=== PATIENT | male | born 1960 | race African-American/Black ===

== ENCOUNTER 2017-08-02 11:01 | Inpatient (IN) | payer OTHER ==
[2017-08-02 11:50] LABS: ADD MAN DIFF? NO
[2017-08-02 11:54] LABS: WHITE BLOOD COUNT 5.7 10^3/ul (4.8-10.8)
[2017-08-02 11:54] LABS: BASOPHILS % 0.2 % (0.0-2.0); EOSINOPHILS % 0.7 % (0.0-7.0); HEMATOCRIT 22.2 % (42.0-52.0); HEMOGLOBIN 7.3 g/dl (14.0-18.0); LYMPHOCYTES # 1.4 10^3/ul (0.8-2.9); LYMPHOCYTES % 24.9 % (15.0-51.0); MEAN CORPUSCULAR HEMOGLOBIN 25.9 pg (29.0-33.0); MEAN CORPUSCULAR HGB CONC 32.9 g/dl (32.0-37.0); MEAN CORPUSCULAR VOLUME 78.7 fl (82.0-101.0); MEAN PLATELET VOLUME 10.9 fl (7.4-10.4); MONOCYTE # 0.5 10^3/ul (0.3-0.9); MONOCYTES % 8.4 % (0.0-11.0); NEUTROPHIL # 3.7 10^3/ul (1.6-7.5); NEUTROPHILS % 65.4 % (39.0-77.0); PLATELET COUNT 146 10^3/UL (140-415); RED BLOOD COUNT 2.82 10^6/ul (4.70-6.10); RED CELL DISTRIBUTION WIDTH 13.7 % (11.5-14.5)
[2017-08-02 12:17] LABS: INR 1.13; PROTIME 14.7 Sec (11.9-14.9); PT RATIO 1.1
[2017-08-02 12:18] LABS: PARTIAL THROMBOPLASTIN TIME 30.3 Sec (25.0-35.0)
[2017-08-02 12:30] LABS: ALANINE AMINOTRANSFERASE 61 IU/L (13-69); ALBUMIN 4.1 g/dl (3.3-4.9); ALKALINE PHOSPHATASE 78 IU/L (42-121); ANION GAP 25 (8-16); ASPARTATE AMINO TRANSFERASE 46 IU/L (15-46); BLOOD UREA NITROGEN 106 mg/dl (7-20); CALCIUM 7.8 mg/dl (8.4-10.2); CARBON DIOXIDE 15 mmol/L (21-31); CHLORIDE 107 mmol/L (97-110); CREATININE 8.98 mg/dl (0.61-1.24); GLUCOSE 182 mg/dl (70-220); LIPASE 301 U/L (23-300); SODIUM 141 mmol/L (135-144); TOTAL PROTEIN 7.5 g/dl (6.1-8.1)
[2017-08-02 12:36] LABS: POTASSIUM 6.3 mmol/L (3.5-5.1)
[2017-08-02 12:43] LABS: TROPONIN-I < 0.012 ng/ml (0.00-0.12)
[2017-08-02] MEDS ORDERED: BISACODYL (EC) 5 MG TAB PO (13:30)
[2017-08-02] MEDS ORDERED: DOCUSATE SODIUM 100 MG CAP PO (13:30)
[2017-08-02] MEDS ORDERED: ACETAMINOPHEN 325 MG TAB PO (13:30)
[2017-08-02] MEDS ORDERED: ONDANSETRON 4 MG INJ IV (13:30)
[2017-08-02] MEDS ORDERED: NACL 0.9% 3 ML SYG IV (13:30)
[2017-08-02] MEDS ORDERED: MAGNESIUM HYDROXIDE 30ML CUP PO (13:30)
[2017-08-02] MEDS: DEXTROSE 50% 50 ML SYRINGE IV ×2 (13:46→15:47)
[2017-08-02] MEDS: NA BICARBONATE 8.4% 50 ML SYG IV (13:46)
[2017-08-02] MEDS: NA POLYST SULFON 15 GM/60 ML BTL PO (13:46)
[2017-08-02] MEDS: INSULIN REGULAR, HUMAN 100 UNIT/1 ML 3ML VIAL IVP (13:47)
[2017-08-02] MEDS: PROMETHAZINE 25 MG TAB PO ×2 (14:00→22:00)
[2017-08-02] MEDS: ALBUTEROL 0.5% (NEB) 2.5 MG/0.5 ML AMP INH (16:28)
[2017-08-02] MEDS: AMLODIPINE 10 MG TAB PO (16:39)
[2017-08-02] MEDS: ATORVASTATIN 10 MG TAB PO (20:39)
[2017-08-02] MEDS: HYDROCODONE/APAP (5/325) TAB PO ×2 (20:40→21:20)
[2017-08-02] MEDS: FAMOTIDINE 20 MG TAB PO (20:43)
[2017-08-02] MEDS: HEPARIN 1000 UNITS/ML 10 ML INJ CATHETER (23:26)
[2017-08-03] MEDS: PROMETHAZINE 25 MG TAB PO ×3 (06:00→22:00)
[2017-08-03 06:59] LABS: ADD MAN DIFF? NO
[2017-08-03 07:03] LABS: BASOPHILS % 0.2 % (0.0-2.0); EOSINOPHILS # 0.1 10^3/ul (0.0-0.5); EOSINOPHILS % 1.9 % (0.0-7.0); HEMATOCRIT 24.4 % (42.0-52.0); HEMOGLOBIN 8.1 g/dl (14.0-18.0); LYMPHOCYTES # 1.5 10^3/ul (0.8-2.9); LYMPHOCYTES % 36.2 % (15.0-51.0); MEAN CORPUSCULAR HEMOGLOBIN 26.2 pg (29.0-33.0); MEAN CORPUSCULAR HGB CONC 33.2 g/dl (32.0-37.0); MEAN PLATELET VOLUME 11.8 fl (7.4-10.4); MONOCYTE # 0.7 10^3/ul (0.3-0.9); MONOCYTES % 16.2 % (0.0-11.0); NEUTROPHIL # 1.9 10^3/ul (1.6-7.5); NEUTROPHILS % 45.3 % (39.0-77.0); PLATELET COUNT 153 10^3/UL (140-415); RED BLOOD COUNT 3.09 10^6/ul (4.70-6.10); RED CELL DISTRIBUTION WIDTH 13.5 % (11.5-14.5)
[2017-08-03 07:03] LABS: WHITE BLOOD COUNT 4.3 10^3/ul (4.8-10.8)
[2017-08-03 07:20] LABS: ANION GAP 19 (8-16); BLOOD UREA NITROGEN 90 mg/dl (7-20); CARBON DIOXIDE 21 mmol/L (21-31); CHLORIDE 107 mmol/L (97-110); CREATININE 7.48 mg/dl (0.61-1.24); GLUCOSE 80 mg/dl (70-220); POTASSIUM 4.8 mmol/L (3.5-5.1); SODIUM 142 mmol/L (135-144)
[2017-08-03 07:22] LABS: IRON 136 ug/dl (35-150)
[2017-08-03 07:32] LABS: % IRON SATURATION 41 % SAT (22-52); TOTAL IRON BINDING CAPACITY 329 ug/dl (241-421)
[2017-08-03 07:57] LABS: URIC ACID 6.8 mg/dl (3.1-7.9)
[2017-08-03 08:00] LABS: FERRITIN 78.2 ng/ml (11.1-264.0)
[2017-08-03] MEDS: LINAGLIPTIN 5 MG TABLET PO (08:31)
[2017-08-03] MEDS: AMLODIPINE 10 MG TAB PO (08:33)
[2017-08-03] MEDS: HEPARIN 1000 UNITS/ML 10 ML INJ CATHETER ×2 (14:46→22:16)
[2017-08-03] MEDS: HYDROCODONE/APAP (5/325) TAB PO (15:30)
[2017-08-03 20:13] LABS: IMMEDIATE SPIN CROSSMATCH 1 2
[2017-08-03] MEDS: FAMOTIDINE 20 MG TAB PO (21:00)
[2017-08-03] MEDS: ATORVASTATIN 10 MG TAB PO (21:00)
[2017-08-04] MEDS: HYDROCODONE/APAP (5/325) TAB PO (00:43)
[2017-08-04] MEDS: ONDANSETRON 4 MG TAB PO (01:29)
[2017-08-04] MEDS: PROMETHAZINE 25 MG TAB PO ×3 (05:33→21:55)
[2017-08-04 05:54] LABS: ADD MAN DIFF? NO
[2017-08-04 05:57] LABS: BASOPHILS % 0.2 % (0.0-2.0); EOSINOPHILS # 0.1 10^3/ul (0.0-0.5); EOSINOPHILS % 1.1 % (0.0-7.0); HEMATOCRIT 28.7 % (42.0-52.0); HEMOGLOBIN 9.7 g/dl (14.0-18.0); LYMPHOCYTES # 1.4 10^3/ul (0.8-2.9); LYMPHOCYTES % 21.8 % (15.0-51.0); MEAN CORPUSCULAR HEMOGLOBIN 26.5 pg (29.0-33.0); MEAN CORPUSCULAR HGB CONC 33.8 g/dl (32.0-37.0); MEAN CORPUSCULAR VOLUME 78.4 fl (82.0-101.0); MEAN PLATELET VOLUME 11.2 fl (7.4-10.4); MONOCYTE # 0.7 10^3/ul (0.3-0.9); MONOCYTES % 11.2 % (0.0-11.0); NEUTROPHIL # 4.1 10^3/ul (1.6-7.5); NEUTROPHILS % 65.4 % (39.0-77.0); PLATELET COUNT 151 10^3/UL (140-415); RED BLOOD COUNT 3.66 10^6/ul (4.70-6.10); RED CELL DISTRIBUTION WIDTH 13.6 % (11.5-14.5)
[2017-08-04 05:57] LABS: WHITE BLOOD COUNT 6.3 10^3/ul (4.8-10.8)
[2017-08-04 06:32] LABS: ANION GAP 19 (8-16); BLOOD UREA NITROGEN 52 mg/dl (7-20); CALCIUM 8.1 mg/dl (8.4-10.2); CARBON DIOXIDE 27 mmol/L (21-31); CHLORIDE 102 mmol/L (97-110); CREATININE 5.17 mg/dl (0.61-1.24); GLUCOSE 104 mg/dl (70-220); POTASSIUM 4.7 mmol/L (3.5-5.1); SODIUM 143 mmol/L (135-144)
[2017-08-04 06:56] LABS: PHOSPHORUS 4.7 mg/dl (2.5-4.9)
[2017-08-04] MEDS: AMLODIPINE 10 MG TAB PO (08:08)
[2017-08-04] MEDS: LINAGLIPTIN 5 MG TABLET PO (08:09)
[2017-08-04] MEDS: ATORVASTATIN 10 MG TAB PO (21:55)
[2017-08-04] MEDS: FAMOTIDINE 20 MG TAB PO (21:55)
[2017-08-05] MEDS: PROMETHAZINE 25 MG TAB PO ×3 (06:00→22:00)
[2017-08-05 07:45] LABS: ADD MAN DIFF? NO; HAAIG REFLEX REFLEX FILED
[2017-08-05 07:54] LABS: BASOPHILS % 0.3 % (0.0-2.0); EOSINOPHILS # 0.1 10^3/ul (0.0-0.5); EOSINOPHILS % 1.5 % (0.0-7.0); HEMATOCRIT 28.1 % (42.0-52.0); HEMOGLOBIN 9.4 g/dl (14.0-18.0); LYMPHOCYTES # 1.9 10^3/ul (0.8-2.9); LYMPHOCYTES % 32.5 % (15.0-51.0); MEAN CORPUSCULAR HEMOGLOBIN 26.6 pg (29.0-33.0); MEAN CORPUSCULAR HGB CONC 33.5 g/dl (32.0-37.0); MEAN CORPUSCULAR VOLUME 79.6 fl (82.0-101.0); MEAN PLATELET VOLUME 11.2 fl (7.4-10.4); NEUTROPHIL # 2.8 10^3/ul (1.6-7.5); PLATELET COUNT 152 10^3/UL (140-415); RED BLOOD COUNT 3.53 10^6/ul (4.70-6.10); RED CELL DISTRIBUTION WIDTH 13.7 % (11.5-14.5)
[2017-08-05 07:54] LABS: WHITE BLOOD COUNT 5.9 10^3/ul (4.8-10.8)
[2017-08-05 08:05] LABS: MONOCYTES % 17.4 % (0.0-11.0)
[2017-08-05 08:14] LABS: ALANINE AMINOTRANSFERASE 41 IU/L (13-69); ALBUMIN 3.5 g/dl (3.3-4.9); ALBUMIN/GLOBULIN RATIO 1.06; ALKALINE PHOSPHATASE 68 IU/L (42-121); ANION GAP 17 (8-16); ASPARTATE AMINO TRANSFERASE 22 IU/L (15-46); BILIRUBIN,INDIRECT 0.1 mg/dl (0-1.1); BILIRUBIN,TOTAL 0.1 mg/dl (0.2-1.3); BLOOD UREA NITROGEN 66 mg/dl (7-20); CALCIUM 7.9 mg/dl (8.4-10.2); CARBON DIOXIDE 25 mmol/L (21-31); CHLORIDE 103 mmol/L (97-110); CREATININE 6.49 mg/dl (0.61-1.24); GLUCOSE 83 mg/dl (70-220); POTASSIUM 5.1 mmol/L (3.5-5.1); SODIUM 140 mmol/L (135-144); TOTAL PROTEIN 6.8 g/dl (6.1-8.1)
[2017-08-05 08:38] LABS: INR 1.04; PROTIME 13.7 Sec (11.9-14.9); PT RATIO 1.1
[2017-08-05 08:39] LABS: PARTIAL THROMBOPLASTIN TIME 29.2 Sec (25.0-35.0)
[2017-08-05 08:42] LABS: HEPATITIS B SURFACE ANTIGEN NEGATIVE (NEGATIVE)
[2017-08-05 09:00] LABS: HEPATITIS B CORE ANTIBODY NEGATIVE (NEGATIVE); HEPATITIS C VIRAL ANTIBODY NEGATIVE (NEGATIVE)
[2017-08-05 09:27] LABS: PHOSPHORUS 5.9 mg/dl (2.5-4.9)
[2017-08-05 09:27] LABS: MAGNESIUM 1.9 mg/dl (1.7-2.5)
[2017-08-05] MEDS: AMLODIPINE 10 MG TAB PO (09:38)
[2017-08-05] MEDS: LINAGLIPTIN 5 MG TABLET PO (09:38)
[2017-08-05] MEDS: INSULIN ASPART [NOVOLOG] 3 ML PEN SC ×2 (12:30→18:44)
[2017-08-05] MEDS: INFLUENZA VIRUS VACCINE 0.5 ML (DISPENSING) IM* (12:40)
[2017-08-05] MEDS: HEPARIN 1000 UNITS/ML 10 ML INJ CATHETER ×2 (14:48→22:49)
[2017-08-05] MEDS ORDERED: LIDOCAINE 1% (MDV) 20 ML INJ (16:25)
[2017-08-05] MEDS ORDERED: HEPARIN 1000 UNITS/ML 10 ML INJ (16:25)
[2017-08-05] MEDS ORDERED: MIDAZOLAM 1 MG/ML 2 ML INJ (16:25)
[2017-08-05] MEDS ORDERED: HEPARIN 1000 UNITS/NS (A-LINE) 1,000 ML (16:25)
[2017-08-05] MEDS ORDERED: FENTAnyl 50 MCG/ML VIAL (16:25)
[2017-08-05] MEDS: EPOETIN 10000 UNITS/1 ML INJ (ESRD) SC (18:10)
[2017-08-05] MEDS ORDERED: GLUCAGON 1 MG INJ IM (18:30)
[2017-08-05] MEDS ORDERED: GLUCOSE GEL 15 GRAM TUBE BUCCAL (18:30)
[2017-08-05] MEDS ORDERED: GLUCOSE GEL 15 GRAM TUBE PO ×2 (18:30)
[2017-08-05] MEDS ORDERED: DEXTROSE 50% 50 ML SYRINGE IV ×2 (18:30)
[2017-08-05] MEDS: HYDROCODONE/APAP (5/325) TAB PO ×2 (18:45→22:56)
[2017-08-05] MEDS: FAMOTIDINE 20 MG TAB PO (21:00)
[2017-08-05] MEDS: ATORVASTATIN 10 MG TAB PO (21:00)
[2017-08-06] MEDS: ACCU-CHEK XX (02:00)
[2017-08-06] MEDS: PROMETHAZINE 25 MG TAB PO ×3 (06:18→22:08)
[2017-08-06] MEDS: HYDROCODONE/APAP (5/325) TAB PO (06:18)
[2017-08-06] MEDS: INSULIN ASPART [NOVOLOG] 3 ML PEN SC ×3 (07:25→17:39)
[2017-08-06 07:30] LABS: ADD MAN DIFF? NO
[2017-08-06 08:15] LABS: BASOPHILS % 0.3 % (0.0-2.0); EOSINOPHILS # 0.1 10^3/ul (0.0-0.5); EOSINOPHILS % 1.8 % (0.0-7.0); HEMATOCRIT 27.3 % (42.0-52.0); LYMPHOCYTES # 1.1 10^3/ul (0.8-2.9); LYMPHOCYTES % 17.8 % (15.0-51.0); MEAN CORPUSCULAR HEMOGLOBIN 26.5 pg (29.0-33.0); MEAN CORPUSCULAR VOLUME 80.5 fl (82.0-101.0); MEAN PLATELET VOLUME 11.2 fl (7.4-10.4); MONOCYTES % 15.8 % (0.0-11.0); NEUTROPHIL # 3.9 10^3/ul (1.6-7.5); PLATELET COUNT 142 10^3/UL (140-415); RED BLOOD COUNT 3.39 10^6/ul (4.70-6.10); RED CELL DISTRIBUTION WIDTH 13.8 % (11.5-14.5)
[2017-08-06 08:15] LABS: WHITE BLOOD COUNT 6.1 10^3/ul (4.8-10.8)
[2017-08-06 08:21] LABS: ANION GAP 17 (8-16); BLOOD UREA NITROGEN 37 mg/dl (7-20); CALCIUM 8.2 mg/dl (8.4-10.2); CARBON DIOXIDE 30 mmol/L (21-31); CHLORIDE 101 mmol/L (97-110); GLUCOSE 130 mg/dl (70-220); POTASSIUM 4.8 mmol/L (3.5-5.1); SODIUM 143 mmol/L (135-144)
[2017-08-06] MEDS: AMLODIPINE 10 MG TAB PO (08:45)
[2017-08-06] MEDS: LINAGLIPTIN 5 MG TABLET PO (08:46)
[2017-08-06] MEDS ORDERED: HEPARIN 1000 UNITS/ML 10 ML INJ CATHETER (09:00)
[2017-08-06] MEDS: ACETAMINOPHEN 325 MG TAB PO (11:36)
[2017-08-06] MEDS: HEPARIN 5,000 UNIT/0.5 ML VIAL SC ×2 (14:27→22:33)
[2017-08-06 17:23] LABS: PTH CALCIUM 8.2 mg/dL (8.6-10.3)
[2017-08-06] MEDS: ATORVASTATIN 10 MG TAB PO (20:09)
[2017-08-06] MEDS: FAMOTIDINE 20 MG TAB PO (20:09)
[2017-08-07] MEDS: ACCU-CHEK XX (02:46)
[2017-08-07] MEDS: PROMETHAZINE 25 MG TAB PO ×3 (06:30→22:23)
[2017-08-07] MEDS: HEPARIN 5,000 UNIT/0.5 ML VIAL SC ×3 (06:59→22:44)
[2017-08-07] MEDS: INSULIN ASPART [NOVOLOG] 3 ML PEN SC ×3 (07:25→16:34)
[2017-08-07] MEDS: AMLODIPINE 10 MG TAB PO (08:00)
[2017-08-07] MEDS: LINAGLIPTIN 5 MG TABLET PO (08:01)
[2017-08-07 08:21] LABS: PTH INTACT 295 pg/mL (14-64)
[2017-08-07 08:51] LABS: ADD MAN DIFF? NO
[2017-08-07 08:58] LABS: WHITE BLOOD COUNT 6.4 10^3/ul (4.8-10.8)
[2017-08-07 08:58] LABS: BASOPHILS % 0.3 % (0.0-2.0); EOSINOPHILS # 0.1 10^3/ul (0.0-0.5); HEMOGLOBIN 9.2 g/dl (14.0-18.0); LYMPHOCYTES # 1.8 10^3/ul (0.8-2.9); LYMPHOCYTES % 28.4 % (15.0-51.0); MEAN CORPUSCULAR HEMOGLOBIN 26.4 pg (29.0-33.0); MEAN CORPUSCULAR HGB CONC 32.9 g/dl (32.0-37.0); MEAN CORPUSCULAR VOLUME 80.2 fl (82.0-101.0); MEAN PLATELET VOLUME 11.5 fl (7.4-10.4); MONOCYTE # 1.1 10^3/ul (0.3-0.9); MONOCYTES % 16.5 % (0.0-11.0); NEUTROPHIL # 3.4 10^3/ul (1.6-7.5); NEUTROPHILS % 52.5 % (39.0-77.0); PLATELET COUNT 141 10^3/UL (140-415); RED BLOOD COUNT 3.49 10^6/ul (4.70-6.10); RED CELL DISTRIBUTION WIDTH 13.6 % (11.5-14.5)
[2017-08-07 09:19] LABS: ANION GAP 17 (8-16); BLOOD UREA NITROGEN 53 mg/dl (7-20); CALCIUM 8.2 mg/dl (8.4-10.2); CARBON DIOXIDE 24 mmol/L (21-31); CHLORIDE 102 mmol/L (97-110); CREATININE 5.49 mg/dl (0.61-1.24); GLUCOSE 88 mg/dl (70-220); PHOSPHORUS 5.2 mg/dl (2.5-4.9); POTASSIUM 5.1 mmol/L (3.5-5.1); SODIUM 138 mmol/L (135-144)
[2017-08-07] MEDS: EPOETIN 10000 UNITS/1 ML INJ (ESRD) SC (16:30)
[2017-08-07] MEDS: HYDROCODONE/APAP (5/325) TAB PO (16:32)
[2017-08-07] MEDS: FAMOTIDINE 20 MG TAB PO (20:01)
[2017-08-07] MEDS: ATORVASTATIN 10 MG TAB PO (20:01)
[2017-08-08] MEDS: ACCU-CHEK XX (02:07)
[2017-08-08] MEDS: PROMETHAZINE 25 MG TAB PO ×2 (06:00→13:20)
[2017-08-08] MEDS: HEPARIN 5,000 UNIT/0.5 ML VIAL SC ×2 (06:00→13:22)
[2017-08-08] MEDS ORDERED: LIDOCAINE 1% (MPF) 30 ML INJ (06:25)
[2017-08-08] MEDS ORDERED: THROMBIN 5000 UNIT VIAL (06:25)
[2017-08-08] MEDS ORDERED: GELATIN SIZE 100 SPONGE (06:25)
[2017-08-08] MEDS ORDERED: HEPARIN 1000 UNITS/ML 10 ML INJ (06:26)
[2017-08-08 07:04] LABS: ADD MAN DIFF? NO
[2017-08-08 07:05] LABS: BASOPHILS % 0.2 % (0.0-2.0); EOSINOPHILS # 0.1 10^3/ul (0.0-0.5); HEMATOCRIT 29.2 % (42.0-52.0); HEMOGLOBIN 9.4 g/dl (14.0-18.0); LYMPHOCYTES # 1.9 10^3/ul (0.8-2.9); LYMPHOCYTES % 33.1 % (15.0-51.0); MEAN CORPUSCULAR HEMOGLOBIN 26.5 pg (29.0-33.0); MEAN CORPUSCULAR HGB CONC 32.2 g/dl (32.0-37.0); MEAN CORPUSCULAR VOLUME 82.3 fl (82.0-101.0); NEUTROPHIL # 2.6 10^3/ul (1.6-7.5); NEUTROPHILS % 46.1 % (39.0-77.0); PLATELET COUNT 144 10^3/UL (140-415); RED BLOOD COUNT 3.55 10^6/ul (4.70-6.10); RED CELL DISTRIBUTION WIDTH 13.4 % (11.5-14.5)
[2017-08-08 07:05] LABS: WHITE BLOOD COUNT 5.6 10^3/ul (4.8-10.8)
[2017-08-08 07:12] LABS: MONOCYTES % 18.4 % (0.0-11.0)
[2017-08-08] MEDS: LIDOCAINE 1% (MPF) 30 ML INJ INJ (07:15)
[2017-08-08] MEDS: HEPARIN 1000 UNITS/ML 10 ML INJ IRR (07:15)
[2017-08-08 07:23] LABS: ANION GAP 18 (8-16); BLOOD UREA NITROGEN 46 mg/dl (7-20); CALCIUM 8.5 mg/dl (8.4-10.2); CARBON DIOXIDE 30 mmol/L (21-31); CHLORIDE 100 mmol/L (97-110); CREATININE 4.96 mg/dl (0.61-1.24); GLUCOSE 94 mg/dl (70-220); POTASSIUM 4.6 mmol/L (3.5-5.1); SODIUM 143 mmol/L (135-144)
[2017-08-08] MEDS ORDERED: LIDOCAINE 2% (SDV) 5 ML INJ (07:35)
[2017-08-08] MEDS ORDERED: PROPOFOL 20 ML (07:35)
[2017-08-08] MEDS ORDERED: MEPERIDINE 100 MG INJ (07:35)
[2017-08-08] MEDS ORDERED: EPHEDrine SULFATE 50 MG/5 ML SYG IV (09:00)
[2017-08-08] MEDS ORDERED: DIPHENHYDRAMINE 50 MG INJ IV (09:00)
[2017-08-08] MEDS ORDERED: MIDAZOLAM 1 MG/ML 2 ML INJ IV (09:00)
[2017-08-08] MEDS ORDERED: FENTAnyl 50 MCG/ML VIAL IV ×3 (09:00)
[2017-08-08] MEDS ORDERED: METOCLOPRAMIDE 10 MG INJ IV (09:00)
[2017-08-08] MEDS ORDERED: MEPERIDINE 25 MG INJ IV (09:00)
[2017-08-08] MEDS ORDERED: OXYCODONE/ACETAMINOPHEN (5/325) TAB PO ×2 (09:00)
[2017-08-08] MEDS ORDERED: LABETALOL HCL 20MG INJ IV (09:00)
[2017-08-08] MEDS ORDERED: HYDROmorphONE (0.2 MG/ML) 10ML SYG IV ×2 (09:00)
[2017-08-08] MEDS ORDERED: hydrALAzine 20 MG INJ IV (09:00)
[2017-08-08] MEDS ORDERED: NEOSTIGMINE 3 MG/3 ML SYRINGE (09:14)
[2017-08-08] MEDS ORDERED: ONDANSETRON 4 MG INJ (09:14)
[2017-08-08] MEDS ORDERED: ROCURONIUM 50 MG INJ (09:14)
[2017-08-08] MEDS ORDERED: CEFAZOLIN 1 GM INJ (09:14)
[2017-08-08] MEDS: ONDANSETRON 4 MG INJ IV (09:14)
[2017-08-08] MEDS ORDERED: GLYCOPYRROLATE 0.4 MG INJ (09:14)
[2017-08-08] MEDS: HYDROmorphONE (0.2 MG/ML) 10ML SYG IV (09:17)
[2017-08-08] MEDS: LISINOPRIL 10 MG TAB PO (10:09)
[2017-08-08] MEDS: INSULIN ASPART [NOVOLOG] 3 ML PEN SC ×3 (10:09→17:05)
[2017-08-08] MEDS: LINAGLIPTIN 5 MG TABLET PO (10:10)
[2017-08-08] MEDS: AMLODIPINE 10 MG TAB PO (10:11)
[2017-08-08] MEDS: HYDROCODONE/APAP (5/325) TAB PO ×2 (10:26→16:46)
== END 2017-08-08 19:40 | DRG 674 ==
LOC: TEL 13:07 → E/R 11:01
PROC: 03180ZD Bypass Left Brachial Artery to Upper Arm Vein, Open Approach (ICD-10-PCS; principal; 2017-08-02 13:55)
PROC: 06HM33Z Insertion of Infusion Device into Right Femoral Vein, Percutaneous Approach (ICD-10-PCS; 2017-08-02 13:55)
PROC: B54BZZA Ultrasonography of Right Lower Extremity Veins, Guidance (ICD-10-PCS; 2017-08-02 13:55)
PROC: 06PYX3Z Removal of Infusion Device from Lower Vein, External Approach (ICD-10-PCS; 2017-08-02 13:55)
PROC: 06HM33Z Insertion of Infusion Device into Right Femoral Vein, Percutaneous Approach (ICD-10-PCS; 2017-08-02 13:55)
PROC: 02H633Z Insertion of Infusion Device into Right Atrium, Percutaneous Approach (ICD-10-PCS; 2017-08-02 13:55)
PROC: B214YZZ Fluoroscopy of Right Heart using Other Contrast (ICD-10-PCS; 2017-08-02 13:55)
PROC: B543ZZA Ultrasonography of Right Jugular Veins, Guidance (ICD-10-PCS; 2017-08-02 13:55)
PROC: 5A1D70Z Performance of Urinary Filtration, Intermittent, Less than 6 Hours Per Day (ICD-10-PCS; 2017-08-02 13:55)
PROC: 3E0234Z Introduction of Serum, Toxoid and Vaccine into Muscle, Percutaneous Approach (ICD-10-PCS; 2017-08-02 13:55)
PROC: 30233N1 Transfusion of Nonautologous Red Blood Cells into Peripheral Vein, Percutaneous Approach (ICD-10-PCS; 2017-08-02 13:55)
DX: N17.9 Acute kidney failure, unspecified (principal); I12.0 Hypertensive chronic kidney disease with stage 5 chronic kidney disease or end stage renal disease; E87.2 Acidosis; T82.41XA Breakdown (mechanical) of vascular dialysis catheter, initial encounter; E11.22 Type 2 diabetes mellitus with diabetic chronic kidney disease; N18.6 End stage renal disease; D63.1 Anemia in chronic kidney disease; I69.392 Facial weakness following cerebral infarction; E78.5 Hyperlipidemia, unspecified; F20.9 Schizophrenia, unspecified; Z99.2 Dependence on renal dialysis; Z23 Encounter for immunization; G89.29 Other chronic pain; M54.9 Dorsalgia, unspecified; Y83.8 Other surgical procedures as the cause of abnormal reaction of the patient, or of later complication, without mention of misadventure at the time of the procedure; Y92.230 Patient room in hospital as the place of occurrence of the external cause
CPT/HCPCS: 36415; 36430; 71045; 74018; 76775; 80048; 80053; 82728; 82962; 83540; 83690; 83735; 83970; 84100; 84484; 84560; 85025; 85610; 85730; 86704; 86709; 86803; 86850; 86900; 86901; 86920; 87081; 87340; 90686; 90935; 93005; 93970; 94664; 96374; 96375; 96376; 97162; 99291-25

== ENCOUNTER 2017-10-01 09:05 | Emergency (ER) | payer OTHER ==
[2017-10-01 09:58] LABS: ADD MAN DIFF? NO
[2017-10-01 10:03] LABS: WHITE BLOOD COUNT 6.6 10^3/ul (4.8-10.8)
[2017-10-01 10:03] LABS: BASOPHILS % 0.2 % (0.0-2.0); EOSINOPHILS # 0.2 10^3/ul (0.0-0.5); EOSINOPHILS % 2.3 % (0.0-7.0); HEMATOCRIT 37.1 % (42.0-52.0); HEMOGLOBIN 11.5 g/dl (14.0-18.0); LYMPHOCYTES # 1.3 10^3/ul (0.8-2.9); LYMPHOCYTES % 19.7 % (15.0-51.0); MEAN CORPUSCULAR HEMOGLOBIN 26.3 pg (29.0-33.0); MEAN CORPUSCULAR VOLUME 84.7 fl (82.0-101.0); MEAN PLATELET VOLUME 10.5 fl (7.4-10.4); MONOCYTE # 0.5 10^3/ul (0.3-0.9); MONOCYTES % 7.9 % (0.0-11.0); NEUTROPHIL # 4.6 10^3/ul (1.6-7.5); NEUTROPHILS % 69.6 % (39.0-77.0); PLATELET COUNT 186 10^3/UL (140-415); RED BLOOD COUNT 4.38 10^6/ul (4.70-6.10); RED CELL DISTRIBUTION WIDTH 15.7 % (11.5-14.5)
[2017-10-01 10:26] LABS: ANION GAP 16 (8-16); BLOOD UREA NITROGEN 62 mg/dl (7-20); CALCIUM 8.5 mg/dl (8.4-10.2); CARBON DIOXIDE 25 mmol/L (21-31); CHLORIDE 106 mmol/L (97-110); CREATININE 7.18 mg/dl (0.61-1.24); GLUCOSE 222 mg/dl (70-220); SODIUM 141 mmol/L (135-144)
[2017-10-01 10:32] LABS: POTASSIUM 6.2 mmol/L (3.5-5.1)
[2017-10-01 10:33] LABS: INR 0.93; PROTIME 12.5 Sec (11.9-14.9)
[2017-10-01 10:38] LABS: TROPONIN-I < 0.012 ng/ml (0.00-0.12)
[2017-10-01 10:39] LABS: PARTIAL THROMBOPLASTIN TIME 28.1 Sec (25.0-35.0)
== END 2017-10-01 11:14 | disposition home or self-care (01) ==
LOC: E/R 09:05
DX: S20.212A Contusion of left front wall of thorax, initial encounter (principal); I10 Essential (primary) hypertension; R40.2142 Coma scale, eyes open, spontaneous, at arrival to emergency department; R40.2252 Coma scale, best verbal response, oriented, at arrival to emergency department; R40.2362 Coma scale, best motor response, obeys commands, at arrival to emergency department; W19.XXXA Unspecified fall, initial encounter; Y92.9 Unspecified place or not applicable
CPT/HCPCS: 36415; 71045; 71100; 80048; 84484; 85025; 85610; 85730; 93005; 99285-25

== ENCOUNTER 2017-11-21 15:29 | Observation (INO) | payer OTHER ==
[2017-11-21 16:11] LABS: ADD MAN DIFF? NO
[2017-11-21 16:13] LABS: BASOPHILS % 0.2 % (0.0-2.0); EOSINOPHILS # 0.1 10^3/ul (0.0-0.5); EOSINOPHILS % 1.3 % (0.0-7.0); HEMOGLOBIN 11.4 g/dl (14.0-18.0); LYMPHOCYTES # 1.6 10^3/ul (0.8-2.9); LYMPHOCYTES % 18.6 % (15.0-51.0); MEAN CORPUSCULAR HEMOGLOBIN 23.3 pg (29.0-33.0); MEAN CORPUSCULAR HGB CONC 30.8 g/dl (32.0-37.0); MEAN CORPUSCULAR VOLUME 75.7 fl (82.0-101.0); MEAN PLATELET VOLUME 11.1 fl (7.4-10.4); MONOCYTE # 0.6 10^3/ul (0.3-0.9); MONOCYTES % 7.7 % (0.0-11.0); NEUTROPHILS % 71.8 % (39.0-77.0); PLATELET COUNT 170 10^3/UL (140-415); RED BLOOD COUNT 4.89 10^6/ul (4.70-6.10); RED CELL DISTRIBUTION WIDTH 15.6 % (11.5-14.5)
[2017-11-21 16:13] LABS: WHITE BLOOD COUNT 8.3 10^3/ul (4.8-10.8)
[2017-11-21] MEDS: morphine 4 MG/ML VIAL IV (16:18)
[2017-11-21] MEDS: ONDANSETRON 4 MG INJ IV (16:18)
[2017-11-21 16:21] LABS: ALANINE AMINOTRANSFERASE 32 IU/L (13-69); ALBUMIN 4.1 g/dl (3.3-4.9); ALBUMIN/GLOBULIN RATIO 1.36; ALKALINE PHOSPHATASE 111 IU/L (42-121); ANION GAP 21 (8-16); ASPARTATE AMINO TRANSFERASE 25 IU/L (15-46); BILIRUBIN,INDIRECT 0.4 mg/dl (0-1.1); BILIRUBIN,TOTAL 0.4 mg/dl (0.2-1.3); BLOOD UREA NITROGEN 56 mg/dl (7-20); CALCIUM 7.6 mg/dl (8.4-10.2); CARBON DIOXIDE 23 mmol/L (21-31); CHLORIDE 101 mmol/L (97-110); CREATININE 7.74 mg/dl (0.61-1.24); GLUCOSE 229 mg/dl (70-220); LIPASE 191 U/L (23-300); POTASSIUM 5.2 mmol/L (3.5-5.1); SODIUM 140 mmol/L (135-144); TOTAL PROTEIN 7.1 g/dl (6.1-8.1)
[2017-11-21] MEDS: HYDROmorphONE 2 MG/ML SYG IV (17:52)
[2017-11-21] MEDS: HYDROmorphONE 1 MG/ML SYG IV (19:20)
[2017-11-21] MEDS ORDERED: DOCUSATE SODIUM 100 MG CAP PO (19:30)
[2017-11-21] MEDS ORDERED: ACETAMINOPHEN 325 MG TAB PO (19:30)
[2017-11-21] MEDS ORDERED: MAGNESIUM HYDROXIDE 30ML CUP PO (19:30)
[2017-11-21] MEDS ORDERED: ONDANSETRON 4 MG INJ IV (19:30)
[2017-11-21] MEDS: NA POLYST SULFON 15 GM/60 ML BTL PO (20:08)
[2017-11-21] MEDS: AMLODIPINE 10 MG TAB PO (20:09)
[2017-11-21] MEDS: FAMOTIDINE 20 MG TAB PO (20:09)
[2017-11-22] MEDS: ONDANSETRON 4 MG INJ IV ×3 (00:08→15:55)
[2017-11-22] MEDS: morphine 4 MG/ML VIAL IV ×6 (00:09→22:34)
[2017-11-22] MEDS: ACCU-CHEK XX (01:26)
[2017-11-22 06:45] LABS: ADD MAN DIFF? NO
[2017-11-22 06:52] LABS: BASOPHILS % 0.6 % (0.0-2.0); EOSINOPHILS % 0.8 % (0.0-7.0); HEMATOCRIT 32.3 % (42.0-52.0); HEMOGLOBIN 10.1 g/dl (14.0-18.0); LYMPHOCYTES # 1.5 10^3/ul (0.8-2.9); LYMPHOCYTES % 28.7 % (15.0-51.0); MEAN CORPUSCULAR HEMOGLOBIN 23.5 pg (29.0-33.0); MEAN CORPUSCULAR HGB CONC 31.3 g/dl (32.0-37.0); MEAN CORPUSCULAR VOLUME 75.3 fl (82.0-101.0); MEAN PLATELET VOLUME 11.1 fl (7.4-10.4); MONOCYTE # 0.5 10^3/ul (0.3-0.9); MONOCYTES % 9.6 % (0.0-11.0); NEUTROPHIL # 3.2 10^3/ul (1.6-7.5); NEUTROPHILS % 60.1 % (39.0-77.0); PLATELET COUNT 149 10^3/UL (140-415); RED BLOOD COUNT 4.29 10^6/ul (4.70-6.10); RED CELL DISTRIBUTION WIDTH 15.9 % (11.5-14.5)
[2017-11-22 06:52] LABS: WHITE BLOOD COUNT 5.3 10^3/ul (4.8-10.8)
[2017-11-22 07:29] LABS: ALBUMIN 3.5 g/dl (3.3-4.9); ANION GAP 19 (8-16); BLOOD UREA NITROGEN 60 mg/dl (7-20); CALCIUM 7.3 mg/dl (8.4-10.2); CARBON DIOXIDE 25 mmol/L (21-31); CHLORIDE 100 mmol/L (97-110); CREATININE 8.19 mg/dl (0.61-1.24); GLUCOSE 189 mg/dl (70-220); PHOSPHORUS 7.2 mg/dl (2.5-4.9); POTASSIUM 4.9 mmol/L (3.5-5.1); SODIUM 139 mmol/L (135-144)
[2017-11-22] MEDS: INSULIN ASPART [NOVOLOG] 3 ML PEN SC ×4 (08:23→21:00)
[2017-11-22] MEDS: AMLODIPINE 10 MG TAB PO (08:24)
[2017-11-22] MEDS: FAMOTIDINE 20 MG TAB PO ×2 (08:25→11:00)
[2017-11-22] MEDS: EPOETIN 10000 UNITS/1 ML INJ (ESRD) SC (10:00)
[2017-11-22 10:03] LABS: ADD UMIC YES; UR ASCORBIC ACID NEGATIVE (NEGATIVE); UR BILIRUBIN (Dip) NEGATIVE (NEGATIVE); UR BLOOD (Dip) NEGATIVE (NEGATIVE); UR CLARITY CLEAR (CLEAR); UR COLOR YELLOW (YELLOW); UR GLUCOSE (Dip) 3+ mg/dL (NEGATIVE); UR KETONES (Dip) NEGATIVE (NEGATIVE); UR LEUKOCYTE ESTERASE (Dip) NEGATIVE Leu/ul (NEGATIVE); UR NITRITE (Dip) NEGATIVE (NEGATIVE); UR RBC 1 /HPF (0-5); UR SPECIFIC GRAVITY (Dip) 1.012 (1.003-1.030); UR TOTAL PROTEIN (Dip) 3+ mg/dl (NEGATIVE); UR UROBILINOGEN (Dip) NEGATIVE (NEGATIVE); UR WBC 2 /HPF (0-5)
[2017-11-22] MEDS ORDERED: NON-FORMULARY/PATIENT OWN MED (Linagliptin (Tradjenta) 5 MG) PO (11:00)
[2017-11-22] MEDS: SEVELAMER CARBONATE 800 MG TABLET PO ×2 (12:36→17:21)
[2017-11-22] MEDS: HEPARIN 5,000 UNIT/0.5 ML VIAL SC ×2 (13:06→21:31)
[2017-11-22] MEDS: LINAGLIPTIN 5 MG TABLET PO (13:19)
[2017-11-22 17:13] LABS: HEPATITIS B SURFACE ANTIGEN NEGATIVE (NEGATIVE)
[2017-11-22] MEDS: HEPARIN 1000 UNITS/ML 10 ML INJ CATHETER (19:18)
[2017-11-22] MEDS ORDERED: GLUCAGON 1 MG INJ IM (20:00)
[2017-11-22] MEDS ORDERED: GLUCOSE GEL 15 GRAM TUBE BUCCAL (20:00)
[2017-11-22] MEDS ORDERED: DEXTROSE 50% 50 ML SYRINGE IV ×2 (20:00)
[2017-11-22] MEDS ORDERED: GLUCOSE GEL 15 GRAM TUBE PO ×2 (20:00)
[2017-11-23] MEDS: ACCU-CHEK XX (02:00)
[2017-11-23] MEDS: morphine 4 MG/ML VIAL IV ×2 (03:18→06:19)
[2017-11-23] MEDS: INSULIN ASPART [NOVOLOG] 3 ML PEN SC ×4 (08:00→20:59)
[2017-11-23 09:00] LABS: ADD MAN DIFF? NO
[2017-11-23] MEDS: ASPIRIN (EC) 81 MG TAB PO (09:03)
[2017-11-23] MEDS: SEVELAMER CARBONATE 800 MG TABLET PO ×4 (09:03→20:51)
[2017-11-23] MEDS: LINAGLIPTIN 5 MG TABLET PO (09:03)
[2017-11-23] MEDS: FAMOTIDINE 20 MG TAB PO ×2 (09:03→09:06)
[2017-11-23] MEDS: HEPARIN 5,000 UNIT/0.5 ML VIAL SC ×2 (09:10→20:59)
[2017-11-23 09:11] LABS: WHITE BLOOD COUNT 4.7 10^3/ul (4.8-10.8)
[2017-11-23 09:11] LABS: BASOPHILS % 0.2 % (0.0-2.0); EOSINOPHILS # 0.1 10^3/ul (0.0-0.5); EOSINOPHILS % 2.4 % (0.0-7.0); HEMATOCRIT 39.7 % (42.0-52.0); HEMOGLOBIN 12.1 g/dl (14.0-18.0); LYMPHOCYTES # 1.4 10^3/ul (0.8-2.9); LYMPHOCYTES % 30.4 % (15.0-51.0); MEAN CORPUSCULAR HEMOGLOBIN 23.1 pg (29.0-33.0); MEAN CORPUSCULAR HGB CONC 30.5 g/dl (32.0-37.0); MEAN CORPUSCULAR VOLUME 75.8 fl (82.0-101.0); MEAN PLATELET VOLUME 11.2 fl (7.4-10.4); MONOCYTE # 0.5 10^3/ul (0.3-0.9); MONOCYTES % 11.1 % (0.0-11.0); NEUTROPHIL # 2.6 10^3/ul (1.6-7.5); NEUTROPHILS % 55.7 % (39.0-77.0); PLATELET COUNT 164 10^3/UL (140-415); RED BLOOD COUNT 5.24 10^6/ul (4.70-6.10); RED CELL DISTRIBUTION WIDTH 15.9 % (11.5-14.5)
[2017-11-23] MEDS: AMLODIPINE 10 MG TAB PO (09:13)
[2017-11-23 09:22] LABS: HEMOGLOBIN A1C 7.8 % (0-5.9)
[2017-11-23 09:39] LABS: ALANINE AMINOTRANSFERASE 36 IU/L (13-69); ALBUMIN 3.9 g/dl (3.3-4.9); ALBUMIN/GLOBULIN RATIO 1.11; ALKALINE PHOSPHATASE 111 IU/L (42-121); ANION GAP 18 (8-16); ASPARTATE AMINO TRANSFERASE 26 IU/L (15-46); BILIRUBIN,INDIRECT 0.3 mg/dl (0-1.1); BILIRUBIN,TOTAL 0.3 mg/dl (0.2-1.3); BLOOD UREA NITROGEN 37 mg/dl (7-20); CARBON DIOXIDE 26 mmol/L (21-31); CHLORIDE 100 mmol/L (97-110); CREATININE 6.73 mg/dl (0.61-1.24); GLUCOSE 137 mg/dl (70-220); POTASSIUM 4.8 mmol/L (3.5-5.1); SODIUM 139 mmol/L (135-144); TOTAL PROTEIN 7.4 g/dl (6.1-8.1)
[2017-11-23 09:39] LABS: PHOSPHORUS 7.3 mg/dl (2.5-4.9)
[2017-11-23] MEDS: HYDROCODONE/APAP (10/325) TAB PO ×2 (12:18→16:38)
[2017-11-23] MEDS: HEPARIN 1000 UNITS/ML 10 ML INJ CATHETER (18:41)
== END 2017-11-24 00:13 | disposition home or self-care (01) ==
LOC: E/R 15:29 → MS4 19:18
DX: M54.5 Low back pain (principal); W10.9XXA Fall (on) (from) unspecified stairs and steps, initial encounter; I12.0 Hypertensive chronic kidney disease with stage 5 chronic kidney disease or end stage renal disease; N18.6 End stage renal disease; Z99.2 Dependence on renal dialysis; D63.1 Anemia in chronic kidney disease; E11.9 Type 2 diabetes mellitus without complications; R11.2 Nausea with vomiting, unspecified; F20.9 Schizophrenia, unspecified
CPT/HCPCS: 36415; 74176; 80053; 80069; 81001; 82962; 83036; 83690; 83735; 84100; 85025; 87340; 90935; 96374; 96375; 99285-25; G0378

== ENCOUNTER 2017-12-14 03:19 | Emergency (ER) | payer OTHER ==
[2017-12-14] MEDS: ACETAMINOPHEN 325 MG TAB PO (05:29)
[2017-12-14] MEDS: CLINDAMYCIN 300 MG CAP PO (05:31)
== END 2017-12-14 05:38 | disposition home or self-care (01) ==
LOC: FTE 03:19
DX: L03.114 Cellulitis of left upper limb (principal); I12.9 Hypertensive chronic kidney disease with stage 1 through stage 4 chronic kidney disease, or unspecified chronic kidney disease; N18.9 Chronic kidney disease, unspecified; Z79.82 Long term (current) use of aspirin
CPT/HCPCS: 99283

== ENCOUNTER 2018-04-18 05:42 | Day surgery (SDC) | payer OTHER ==
[2018-04-18 06:55] LABS: ADD MAN DIFF? NO
[2018-04-18] MEDS ORDERED: GLYCOPYRROLATE 0.4 MG INJ ×2 (07:00→09:09)
[2018-04-18 07:12] LABS: BASOPHILS % 0.2 % (0.0-2.0); EOSINOPHILS # 0.1 10^3/ul (0.0-0.5); EOSINOPHILS % 1.2 % (0.0-7.0); HEMATOCRIT 33.1 % (42.0-52.0); LYMPHOCYTES # 1.5 10^3/ul (0.8-2.9); LYMPHOCYTES % 26.3 % (15.0-51.0); MEAN CORPUSCULAR HEMOGLOBIN 24.6 pg (29.0-33.0); MEAN CORPUSCULAR HGB CONC 30.2 g/dl (32.0-37.0); MEAN CORPUSCULAR VOLUME 81.3 fl (82.0-101.0); MEAN PLATELET VOLUME 10.9 fl (7.4-10.4); MONOCYTE # 0.7 10^3/ul (0.3-0.9); MONOCYTES % 11.9 % (0.0-11.0); NEUTROPHIL # 3.5 10^3/ul (1.6-7.5); NEUTROPHILS % 60.1 % (39.0-77.0); PLATELET COUNT 176 10^3/UL (140-415); RED BLOOD COUNT 4.07 10^6/ul (4.70-6.10); RED CELL DISTRIBUTION WIDTH 19.1 % (11.5-14.5)
[2018-04-18 07:12] LABS: WHITE BLOOD COUNT 5.8 10^3/ul (4.8-10.8)
[2018-04-18 07:29] LABS: ALANINE AMINOTRANSFERASE 22 IU/L (13-69); ALBUMIN 3.9 g/dl (3.3-4.9); ALKALINE PHOSPHATASE 76 IU/L (42-121); ANION GAP 11 (5-13); ASPARTATE AMINO TRANSFERASE 23 IU/L (15-46); CARBON DIOXIDE 34 mmol/L (21-31); CHLORIDE 93 mmol/L (97-110); Estimated GFR 11 mL/min (>60); GLUCOSE 199 mg/dl (70-220); INR 0.96; PARTIAL THROMBOPLASTIN TIME 30.9 Sec (23.0-35.0); PROTIME 12.9 Sec (11.9-14.9); SODIUM 138 mmol/L (135-144); TOTAL PROTEIN 6.9 g/dl (6.1-8.1)
[2018-04-18] MEDS ORDERED: GELATIN SIZE 100 SPONGE (07:41)
[2018-04-18] MEDS ORDERED: LIDOCAINE 1% (STERILE-PAK) 30 ML INJ (07:41)
[2018-04-18 07:50] LABS: POTASSIUM 5.4 mmol/L (3.5-5.1)
[2018-04-18 07:57] LABS: BLOOD UREA NITROGEN 28 mg/dl (7-20)
[2018-04-18 07:58] LABS: CALCIUM 7.6 mg/dl (8.4-10.2); CREATININE 6.55 mg/dl (0.61-1.24)
[2018-04-18] MEDS ORDERED: FENTAnyl 50 MCG/ML VIAL IV ×3 (08:00)
[2018-04-18] MEDS ORDERED: FENTAnyl 50 MCG/ML VIAL (08:00)
[2018-04-18] MEDS ORDERED: HYDROmorphONE 1 MG/5 ML IV SYRINGE IV ×3 (08:00)
[2018-04-18] MEDS ORDERED: DIPHENHYDRAMINE 50 MG INJ IV (08:00)
[2018-04-18] MEDS ORDERED: MEPERIDINE 25 MG INJ IV (08:00)
[2018-04-18] MEDS ORDERED: ONDANSETRON 4 MG INJ IV (08:00)
[2018-04-18] MEDS ORDERED: METOCLOPRAMIDE 10 MG INJ IV (08:00)
[2018-04-18] MEDS ORDERED: ALBUTEROL 0.083% (NEB) 2.5 MG/3 ML AMP HHN (08:00)
[2018-04-18] MEDS ORDERED: ROPIVACAINE 0.5 % 30 ML VIAL (08:03)
[2018-04-18] MEDS ORDERED: MIDAZOLAM 1 MG/ML 2 ML INJ (08:05)
[2018-04-18] MEDS ORDERED: THROMBIN 20,000 UNIT VIAL ZFS (08:30)
[2018-04-18] MEDS: HEPARIN 1000 UNITS/ML 10 ML INJ (08:34)
[2018-04-18] MEDS ORDERED: ROCURONIUM 50 MG INJ (09:09)
[2018-04-18] MEDS ORDERED: PROPOFOL 20 ML (09:09)
[2018-04-18] MEDS ORDERED: NEOSTIGMINE 3 MG/3 ML SYRINGE (09:09)
[2018-04-18] MEDS ORDERED: CEFAZOLIN 1 GM INJ (09:09)
[2018-04-18] MEDS ORDERED: LIDOCAINE 100 MG SYRINGE (09:09)
[2018-04-18] MEDS ORDERED: SUCCINYLCHOLINE CHLORIDE 100 MG/5 ML SYG IV (09:09)
[2018-04-18] MEDS ORDERED: LABETALOL HCL 20MG INJ IV (10:00)
[2018-04-18] MEDS ORDERED: LABETALOL HCL 20MG INJ (10:01)
[2018-04-18] MEDS: LABETALOL HCL 20MG INJ IV (10:24)
== END 2018-04-21 09:03 | disposition home or self-care (01) ==
LOC: SDS 05:42
DX: I12.0 Hypertensive chronic kidney disease with stage 5 chronic kidney disease or end stage renal disease (principal); N18.6 End stage renal disease; E78.5 Hyperlipidemia, unspecified
CPT/HCPCS: 36832; 71045; 80053; 82962; 85025; 85610; 85730; 93005